=== PATIENT | male | born 1955 | race Caucasian/White ===

== ENCOUNTER 2016-03-23 02:21 | Emergency (ER) | payer OTHER ==
[2016-03-23 03:39] LABS: BASOPHILS % (AUTO) 1 % (0-3); EOSINOPHILS % (AUTO) 1 % (0-9); HEMATOCRIT 40 % (39-53); MEAN CORPUSCULAR HGB CONC 35.2 gm/dl (32.0-36.0); MEAN CORPUSCULAR VOLUME 83 fL (80-100); MONOCYTES % (AUTO) 6.8 % (0-12)
[2016-03-23 03:43] VITALS: TEMP 99.1
[2016-03-23 03:56] LABS: APPEARANCE,URINE Slightly Cloudy; BILIRUBIN,URINE NEGATIVE (NEGATIVE); COLOR,URINE Yellow; GLUCOSE, URINE (UA) NEGATIVE (NEGATIVE); KETONES,URINE NEGATIVE (NEGATIVE); LEUKOCYTE ESTERASE ,URINE 1+ (NEGATIVE); NITRATE,URINE NEGATIVE (NEGATIVE); OCCULT BLOOD,URINE 2+ (NEG-TRACE); UROBILINOGEN,URINE 0.2 (0.2-1.0 EU)
[2016-03-23 03:57] LABS: CALCIUM 8.8 mg/dl (8.5-10.1); POTASSIUM 4.9 mMol/L (3.5-5.1); THYROID STIMULATING HORMONE 1.496 uU/ml (0.358-3.740)
[2016-03-23 04:09] LABS: WBC,URINE 120-150 (0-5AV/HPF)
[2016-03-23] MEDS ORDERED: LEVOFLOXACIN 500 MG TAB PO ONE (04:29)
[2016-03-23] MEDS ORDERED: LEVOFLOXACIN 500 MG TAB ONE (04:47)
[2016-03-23 05:21] VITALS: BP 120/63; PULSE 75; RESP 21; O2SAT 96
== END 2016-03-23 05:07 | disposition home or self-care (01) | DRG 202 ==
LOC: ED 02:21
DX: J20.9 Acute bronchitis, unspecified (principal); N18.4 Chronic kidney disease, stage 4 (severe); R82.71 Bacteriuria
CPT/HCPCS: 36415; 71020; 80048; 81001; 84443; 85025; 87040; 87077; 87088; 87186; 93005; 99284; 99285